=== PATIENT | female | born 1980 | race American Indian/Alaskan Native ===

== ENCOUNTER 2021-06-13 22:29 | Emergency (ER) | payer BC, MEDICAID ==
[2021-06-13] MEDS ORDERED: hydrOXYzine HCl 50 MG/ML SDV IM ONE (22:44)
[2021-06-13] MEDS ORDERED: methylPREDNISolone Sodium Succinate 125 MG/2 ML SDV IM STA (22:45)
== END 2021-06-13 23:20 | disposition home or self-care (01) ==
LOC: FB.ED 22:29
DX: L42 Pityriasis rosea (principal)
CPT/HCPCS: 96372; 99282; J2930; J3410

== ENCOUNTER 2021-07-23 12:57 | Emergency (ER) | payer BC, MEDICAID ==
[2021-07-23] MEDS: Sodium Chloride 0.9% 1,000 ML IV SCH (13:27)
[2021-07-23] MEDS: Prochlorperazine 10 MG in Sodium Chloride 0.9% 50 ML IV ONE (13:27)
[2021-07-23] MEDS: Iopamidol 755 Mg/ML 100 ML Bottle IV ONE (14:11)
== END 2021-07-23 16:05 | disposition home or self-care (01) ==
LOC: FB.ED 12:57
DX: N39.0 Urinary tract infection, site not specified (principal); K52.9 Noninfective gastroenteritis and colitis, unspecified; K70.0 Alcoholic fatty liver; I48.92 Unspecified atrial flutter; D64.9 Anemia, unspecified; E87.6 Hypokalemia
CPT/HCPCS: 36415; 74177; 81001; 82150; 83690; 87086; 87088; 87186; 93005; 93010; 96365; 99283; 99284; J0780; J3490; J7030; Q9967

== ENCOUNTER 2021-10-15 23:33 | Emergency (ER) | payer BC, MEDICAID ==
[2021-10-15] MEDS ORDERED: Ondansetron 4 MG Tab.DIS PO STA (23:56)
[2021-10-16] MEDS ORDERED: Potassium Chloride 20 MEQ Tab.ER PO STA (00:15)
[2021-10-16] MEDS ORDERED: hydrOXYzine HCl 50 MG/ML SDV IM STA (00:15)
== END 2021-10-16 00:35 | disposition home or self-care (01) ==
LOC: FB.ED 23:33
DX: K21.9 Gastro-esophageal reflux disease without esophagitis (principal); R11.2 Nausea with vomiting, unspecified; F17.210 Nicotine dependence, cigarettes, uncomplicated
CPT/HCPCS: 96372; 99283; A9270; J3410; Q0162

== ENCOUNTER 2022-07-29 11:05 | Emergency (ER) | payer MEDICAID ==
[2022-07-29] MEDS ORDERED: Ketorolac 30 MG/ML SDV IVPUSH ONE (11:31)
[2022-07-29] MEDS ORDERED: LORazepam 2 MG/ML SDV IVPUSH ONE (11:31)
[2022-07-29 11:37] LABS: BASOPHILS PERCENT AUTO 0.3 % (0.2-1.5); EOSINOPHILS ABSOLUTE AUTO 0.1 x10-3/uL (0.0-0.8); EOSINOPHILS PERCENT AUTO 1.2 % (0.6-8.1); HEMATOCRIT 36.1 % (34.2-48.2); LYMPHOCYTES ABSOLUTE AUTO 1.7 x10-3/uL (1.0-4.4); LYMPHOCYTES PERCENT AUTO 20.1 % (18.4-52.1); MEAN CORPUSCULAR HGB CONC 33.1 g/dL (31.9-34.8); MEAN CORPUSCULAR VOLUME 78.5 fL (76.7-100.5); MEAN PLATELET VOLUME 8.5 fL (7.1-12.4); MONOCYTES ABSOLUTE AUTO 0.6 x10-3/uL (0.3-1.0); MONOCYTES PERCENT AUTO 6.7 % (4.4-15.7); NEUTROPHILS ABSOLUTE AUTO 6.2 x10-3/uL (1.5-6.3); NEUTROPHILS PERCENT AUTO 71.7 % (30.8-76.2); PLATELET COUNT,PLT 250 x10(3)uL (151-488); RED CELL DISTRIBUTION WIDTH 14.9 % (12.3-16.5); WHITE BLOOD CELL COUNT,WBC 8.6 x10-3/uL (3.0-10.3)
[2022-07-29 11:43] LABS: BLOOD UREA NITROGEN,BUN 21 mg/dL (7-18); BUN/CREATININE RATIO 23.3 (9-20); CALCIUM 9.3 mg/dL (8.6-10.2); CARBON DIOXIDE,CO2 25 mmol/L (21-32); CHLORIDE,CL 104 mmol/L (100-110); CREATININE 0.9 mg/dL (0.55-1.02); EST CRCL DRUG DOSING (CG) 81.13 mL/min; ESTIMATED GFR 83 mL/min (>60); GLUCOSE RANDOM 78 mg/dL (80-116); POTASSIUM,K 3.7 mmol/L (3.5-5.3); SODIUM,NA 142 mmol/L (135-145)
[2022-07-29 11:49] LABS: A/G RATIO 0.9; ALANINE AMINOTRANSFERASE,ALT 34 U/L (12-36); ALBUMIN 3.7 g/dL (3.5-5.2); ALKALINE PHOSPHATASE 141 IU/L (56-112); ASPARTATE AMNIOTRANSFERASE,AST 27 IU/L (5-25); BILIRUBIN TOTAL 0.3 mg/dL (0.1-1.3); PROTEIN TOTAL,TP 7.8 g/dL (6.0-8.0)
[2022-07-29 12:00] LABS: D-DIMER QUANTITATIVE 0.65 mg/LFEU (0.0-0.59); INR 0.96 (1.00-1.24); PROTHROMBIN TIME 9.9 sec (9.0-11.1)
[2022-07-29 12:04] LABS: PTT,PARTIAL THROMBOPLSTIN TIME 24.5 SECONDS (24.4-33.2)
[2022-07-29 12:06] LABS: AMPHETAMINES SCREEN, URINE NEGATIVE (NEGATIVE); BARBITURATE SCREEN,URINE NEGATIVE (NEGATIVE); BENZODIAZEPINES SCREEN,URINE NEGATIVE (NEGATIVE); BUPRENORPHINE SCREEN,URINE NEGATIVE (NEGATIVE); METHADONE SCREEN, URINE NEGATIVE (NEGATIVE); METHAMPHETAMINE SCREEN, URINE NEGATIVE (NEGATIVE); OXYCODONE SCREEN,URINE NEGATIVE (NEGATIVE); PROPOXYPHENE SCREEN,URINE NEGATIVE (NEGATIVE); THC SCREEN,URINE NEGATIVE (NEGATIVE)
[2022-07-29] MEDS ORDERED: Iopamidol 755 Mg/ML 100 ML Bottle IV ONE (12:22)
== END 2022-07-29 14:41 | disposition home or self-care (01) ==
LOC: FB.ED 11:05
DX: R91.1 Solitary pulmonary nodule (principal); J45.909 Unspecified asthma, uncomplicated; Z98.890 Other specified postprocedural states; Z79.899 Other long term (current) drug therapy
CPT/HCPCS: 36415; 71045; 71275; 80053; 80307; 84484; 85025; 85379; 85610; 85730; 93005; 96374; 96375; 99284; J1885; J2060; Q9967

== ENCOUNTER 2023-02-11 01:30 | Emergency (ER) | payer MEDICAID ==
[2023-02-11 02:26] LABS: BASOPHILS PERCENT AUTO 0.3 % (0.2-1.5); EOSINOPHILS ABSOLUTE AUTO 0.2 x10-3/uL (0.0-0.8); EOSINOPHILS PERCENT AUTO 2.4 % (0.6-8.1); HEMATOCRIT 32.3 % (34.2-48.2); HEMOGLOBIN 10.4 g/dL (11.4-15.5); LYMPHOCYTES ABSOLUTE AUTO 1.8 x10-3/uL (1.0-4.4); LYMPHOCYTES PERCENT AUTO 27.3 % (18.4-52.1); MEAN CORPUSCULAR HEMOGLOBIN 27.2 pg (23.9-33.9); MEAN CORPUSCULAR HGB CONC 32.1 g/dL (31.9-34.8); MEAN CORPUSCULAR VOLUME 84.8 fL (76.7-100.5); MEAN PLATELET VOLUME 8.2 fL (7.1-12.4); MONOCYTES ABSOLUTE AUTO 0.7 x10-3/uL (0.3-1.0); NEUTROPHILS ABSOLUTE AUTO 3.8 x10-3/uL (1.5-6.3); PLATELET COUNT,PLT 199 x10(3)uL (151-488); RED BLOOD CELL COUNT 3.81 x10(6)uL (3.60-5.20); RED CELL DISTRIBUTION WIDTH 20.7 % (12.3-16.5); WHITE BLOOD CELL COUNT,WBC 6.5 x10-3/uL (3.0-10.3)
[2023-02-11 02:30] LABS: BLOOD UREA NITROGEN,BUN 16 mg/dL (7-18); BUN/CREATININE RATIO 22.9 (9-20); CALCIUM 8.2 mg/dL (8.6-10.2); CARBON DIOXIDE,CO2 28 mmol/L (21-32); CHLORIDE,CL 103 mmol/L (100-110); CREATININE 0.7 mg/dL (0.55-1.02); EST CRCL DRUG DOSING (CG) 99.45 mL/min; ESTIMATED GFR 112 mL/min (>60); GLUCOSE RANDOM 82 mg/dL (80-116); SODIUM,NA 142 mmol/L (135-145)
[2023-02-11 02:32] LABS: MAGNESIUM 1.6 mg/dL (1.8-2.5); PHOSPHORUS 3.4 mg/dL (2.6-4.6)
[2023-02-11 02:35] LABS: A/G RATIO 0.8; ALANINE AMINOTRANSFERASE,ALT 29 U/L (12-36); ALBUMIN 3.4 g/dL (3.5-5.2); ALKALINE PHOSPHATASE 159 IU/L (56-112); ASPARTATE AMNIOTRANSFERASE,AST 30 IU/L (5-25); BILIRUBIN TOTAL 0.3 mg/dL (0.1-1.3); PROTEIN TOTAL,TP 7.8 g/dL (6.0-8.0)
[2023-02-11 02:37] LABS: TROPONIN I 4.5 pg/mL (4.0-60.3)
[2023-02-11 02:38] LABS: ETHANOL BLOOD MEDICAL 0.22 % (<0.03)
[2023-02-11 02:51] LABS: APPEARANCE,URINE CLOUDY (CLEAR); BACTERIA,URINE MANY (NS); BILIRUBIN,URINE NEGATIVE (NEGATIVE); COLOR,URINE YELLOW (YELLOW); GLUCOSE,URINE NORMAL (NORMAL); KETONES,URINE 15 mg/dL (NEGATIVE); LEUKOCYTE ESTERASE,URINE NEGATIVE (NEGATIVE); NITRITE,URINE POSITIVE (NEGATIVE); OCCULT BLOOD,URINE LARGE (NEGATIVE); PROTEIN,URINE NEGATIVE (NEGATIVE); RBC,URINE 0-5 (0-5); SQUAMOUS EPITHELIAL CELLS,UR FEW (NS,R,O); UROBILINOGEN,URINE NORMAL (NEGATIVE); WBC,URINE 0-5 (0-5)
[2023-02-11] MEDS ORDERED: Magnesium Chloride 64 MG Tab.ER PO STA (03:02)
[2023-02-11] MEDS ORDERED: Potassium Chloride 20 MEQ Tab.ER PO ONE (03:03)
[2023-02-11] MEDS ORDERED: Thiamine 100 MG Tab PO ONE (03:06)
[2023-02-11] MEDS ORDERED: Folic Acid 1 MG Tab PO ONE (03:06)
[2023-02-13 09:44] LABS: FERRITIN 121 ng/mL (13-150)
== END 2023-02-11 03:20 | disposition home or self-care (01) ==
LOC: FB.ED 01:30
DX: R55 Syncope and collapse (principal); E87.6 Hypokalemia; D64.9 Anemia, unspecified; F41.9 Anxiety disorder, unspecified; F10.90 Alcohol use, unspecified, uncomplicated; R82.81 Pyuria; E83.42 Hypomagnesemia; F17.210 Nicotine dependence, cigarettes, uncomplicated; J45.909 Unspecified asthma, uncomplicated; Z90.710 Acquired absence of both cervix and uterus; Z79.899 Other long term (current) drug therapy
CPT/HCPCS: 36415; 80053; 80307; 81001; 82728; 83735; 84100; 84484; 85025; 85379; 86140; 87086; 87088; 87186; 93005; 99284; A9270

== ENCOUNTER 2023-10-03 00:20 | Emergency (ER) | payer BC, MEDICAID ==
[2023-10-03] MEDS ORDERED: Doxycycline 100 MG Tab PO ONE (00:21)
[2023-10-03] MEDS ORDERED: Acetaminophen/HYDROcodone 325-5 MG Tab PO ONE (00:21)
[2023-10-03] MEDS ORDERED: Lidocaine 2% 20 ML MDV INFILT ONE (00:21)
[2023-10-03] MEDS: Lidocaine 2% 5 ML SDV INJECT ONE (01:20)
[2023-10-03] MEDS: Acetaminophen 325 MG Tab PO ONE (02:18)
[2023-10-03] MEDS: Doxycycline 100 MG Tab PO ONE (02:19)
[2023-10-03] MEDS: Acetaminophen/HYDROcodone 325-10 MG Tab PO ONE (02:19)
[2023-10-03] MEDS: cefTRIAXone 1 GM Vial IM ONE (02:21)
[2023-10-07 12:14] LABS: APTIMA MEDIA TYPE Urine; C. TRACHOMATIS BY TMA Negative (Negative); N. GONORRHOEAE BY TMA Negative (Negative); SPECIMEN SOURCE Urine
== END 2023-10-03 02:34 | disposition home or self-care (01) ==
LOC: FB.ED 00:20
DX: N75.1 Abscess of Bartholin's gland (principal); N75.0 Cyst of Bartholin's gland; N76.4 Abscess of vulva; F17.200 Nicotine dependence, unspecified, uncomplicated; Z90.49 Acquired absence of other specified parts of digestive tract; Z90.710 Acquired absence of both cervix and uterus
CPT/HCPCS: 56420; 87070; 87075; 87205; 87491; 87591; 96372; 99283; A9270; J0696